=== PATIENT | male | born 1955 | race Caucasian/White ===

== ENCOUNTER 2019-07-26 08:42 | Emergency (ER) | payer OTHER ==
[~2019-07-26] VITALS: Ht 157.5 cm; Wt 66.7 kg
[2019-07-26] MEDS ORDERED: PLAVIX75 MG (09:00)
[2019-07-26] MEDS ORDERED: ZESTRIL5 MG (09:01)
[2019-07-26] MEDS ORDERED: METFORMIN HCL500 M3 (09:01)
== END 2019-07-26 13:33 | disposition home or self-care (01) ==
LOC: ER 08:42
DX: E11.65 Type 2 diabetes mellitus with hyperglycemia (principal)

== ENCOUNTER 2019-08-08 11:53 | Emergency (ER) | payer OTHER ==
[~2019-08-08] VITALS: Ht 177.8 cm; Wt 68.0 kg
[~2019-08-08 11:53] MED LIST: METFORMIN HCL500 M3; PLAVIX75 MG; ZESTRIL5 MG
== END 2019-08-08 16:05 | disposition home or self-care (01) ==
LOC: ER 11:53
DX: R42 Dizziness and giddiness (principal)